=== PATIENT | female | born 1960 | race Two or more races ===

== ENCOUNTER 2019-02-09 13:42 | Emergency (ER) | payer SELFPAY ==
[~2019-02-09] VITALS: Ht 162.6 cm; Wt 74.4 kg
--- NOTE | 2019-02-09 14:03 | NUR ---
ED Nurse Note: Patient ambulated into ER from home with her with a complaint of high blood pressure today. Patient states that she was at a clinic and they stated that patient need to come into the ER because of high blood pressure. Patient states she has no complaints of headache, dizziness, nausea or vomiting. Patient is asymptomatic. Patient placed on cleaning laborer. IVETTE Jimenes at bedside.
[2019-02-09 14:07] VITALS: BP 190/74
[2019-02-09] MEDS ORDERED: NORVASC5 MG ORAL (14:35)
[2019-02-09 14:50] VITALS: BP 178/78
--- NOTE | 2019-02-09 14:50 | NUR ---
ER DISCHARGE NOTE: Patient is cleared to be discharged per ERMD Dr. Jimenes, pt is aox4, on room air, with stable vital signs. pt was given dc and prescription instructions, pt was able to verbalize understanding, pt id band removed without complications. pt is able to ambulate with steady gait. pt took all belongings.
--- NOTE | 2019-02-09 17:30 | Emergency Room Report ---
History of Present Illness General Chief Complaint: Hypertension Source: Patient, Significant Other Present Illness HPI 58-year-old female presents ED for evaluation. Referred to ED for high blood pressure. Was seen at work clinic today for evaluation status post fall and blood pressure was noted to be high. Was sent here for evaluation. BP in triage 208/101. patient denies dizziness or headache. Denies chest pain or shortness of breath. Denies any prior history of hypertension. States the last time she had her BP checked was 1 year ago. His alcohol or drug use. No other aggravating relieving factors. Denies any other associated symptoms Allergies: Coded Allergies: No Known Allergies (Unverified , 02/09/19) Patient History Past Medical History: none Past Surgical History: none Pertinent Family History: none Social History: Denies: smoking, alcohol use, drug use Now: No Immunizations: UTD Reviewed Nursing Documentation: PMH: Agreed; PSxH: Agreed Nursing Documentation-PMH Past Medical History: No Stated History Review of Systems All Other Systems: negative except mentioned in HPI Physical Exam Vital Signs Date Time Temp Pulse Resp B/P (MAP) Pulse Ox O2 Delivery O2 Flow Rate FiO2 02/09/19 13:48 97.9 89 17 208/101 (136) 99 Room Air Sp02 EP Interpretation: reviewed, normal General Appearance: no apparent distress, alert, GCS 15, non-toxic Head: normocephalic, atraumatic Eyes: bilateral eye normal inspection, bilateral eye PERRL ENT: hearing grossly normal, normal pharynx, no angioedema, normal voice Neck: full range of motion, supple/symm/no masses Respiratory: chest non-tender, lungs clear, normal breath sounds, speaking full sentences Cardiovascular #1: regular rate, rhythm, no edema Cardiovascular #2: 2+ carotid (R), 2+ carotid (L), 2+ radial (R), 2+ radial (L) , 2+ dorsalis pedis (R), 2+ dorsalis pedis (L) Gastrointestinal: normal bowel sounds, non tender, soft, non-distended, no guarding, no rebound Rectal: deferred Genitourinary: normal inspection, no CVA tenderness Musculoskeletal: back normal, normal range of motion, gait/station normal, non- tender Neurologic: alert, motor strength/tone normal, oriented x3, sensory intact, responsive, speech normal Psychiatric: judgement/insight normal, memory normal, mood/affect normal, no suicidal/homicidal ideation Reflexes: 3+ bicep (R), 3+ bicep (L), 3+ tricep (R), 3+ tricep (L), 3+ knee (R) , 3+ knee (L) Lymphatic: no adenopathy Medical Decision Making Diagnostic Impression: Primary Impression: Hypertension Qualified Codes: I10 - Essential (primary) hypertension ER Course Hospital Course 58-year-old female presents ED with elevated BP . no symptoms Differential diagnoses include: hypertensive urgency, hypertensive emergency, arrythmia, FL/ACS Clinical course Patient placed on stretcher. After initial history, exam reveals middle-aged female in no acute distress. Cranial nerves II through XII intact. No nuchal rigidity. No focal deficits. Remainder of exam unremarkable. Repeat BP 190/74. Asymptomatic hypertension. I discussed findings with patient and . No indication for further intervention at this time. Will discharge home with low-dose Norvasc. Does not have a PMD. Will provide referrals I. I feel this is a highly complex case requiring extensive working including EKG/Rhythm strip, Xray/CT/US, Blood/urine lab work, repeat exams while in ED, and administration of strong opiates/narcotics for pain control, admission to hospital or close patient follow up. Diagnosis - hypertension Stable and discharged to home with Rx Norvasc. Instructed to followup with PMD. Return to ED if symptoms recur or worsen Last Vital Signs Date Time Temp Pulse Resp B/P (MAP) Pulse Ox O2 Delivery O2 Flow Rate FiO2 02/09/19 14:17 78 190/74 02/09/19 14:07 20 Room Air 02/09/19 14:07 97.9 100 Status: improved Disposition: HOME, SELF-CARE Condition: Stable Scripts Amlodipine Besylate (Norvasc) 5 Mg Tablet 5 MG ORAL DAILY, #10 TAB Prov: Roberto Casper MD 02/09/19 Referrals: [facility] Patient Instructions: Hypertension, [id number] Roberto Casper MD Feb 09, 2019 17:30
== END 2019-02-09 15:30 | disposition home or self-care (01) ==
LOC: EMR 15:22
DX: I10 Essential (primary) hypertension (principal)
CPT/HCPCS: 99282